=== PATIENT | female | born 1985 | race Caucasian/White ===

== ENCOUNTER 2024-09-29 09:33 | Inpatient (IN) | payer OTHER ==
[2024-09-29] MEDS ORDERED: ONDANSETRON 4 MG/2 ML VIAL ONE (10:18)
[2024-09-29] MEDS ORDERED: diazePAM CARPU-JECT 10 MG/2 ML DISP.SYRIN ONE (10:18)
[2024-09-29] MEDS ORDERED: THIAMINE HCL 200 MG/2 ML VIAL ONE (10:18)
[2024-09-29] MEDS ORDERED: ACETAMINOPHEN INJECTION 100 ML ONE (10:18)
[2024-09-29] MEDS ORDERED: PANTOPRAZOLE SODIUM 40 MG VIAL ONE (10:19)
[2024-09-29 10:21] LABS: HEMATOCRIT 46.8 % (32.4-45.2); HEMOGLOBIN 15.5 GM/dL (10.7-15.3); MCHC 33.1 g/dl (32.0-36.0); MEAN CELL VOLUME 117.8 fl (80-96); MEAN PLT VOLUME 8.3 fl (7.5-11.1); PLATELET COUNT 278 10^3/uL (134-434); RBC 3.97 M/mm3 (3.60-5.2); WHITE BLOOD COUNT 19.8 K/mm3 (4.0-10.0)
[2024-09-29 10:24] LABS: INR 1.03 (0.83-1.09); PROTHROMBIN TIME (PATIENT) 11.8 SEC (9.7-13.0)
[2024-09-29] MEDS: diazePAM CARPU-JECT 10 MG/2 ML DISP.SYRIN IVPUSH ONE (10:25)
[2024-09-29 10:26] LABS: ACTIVATED PTT 31.1 SECONDS (25.2-36.5)
[2024-09-29] MEDS: ONDANSETRON 4 MG/2 ML VIAL IVPUSH ONE (10:30)
[2024-09-29 10:32] LABS: POTASSIUM 4.8 mmol/L (3.5-5.1)
[2024-09-29 10:34] LABS: ALBUMIN 4.6 g/dl (3.4-5.0); CALCIUM 9.7 mg/dL (8.5-10.1)
[2024-09-29 10:35] LABS: BLOOD UREA NITROGEN 9.5 mg/dL (7-18); MAGNESIUM 1.7 mg/dL (1.8-2.4)
[2024-09-29] MEDS: THIAMINE HCL 200 MG/2 ML VIAL IVPB ONE (10:35)
[2024-09-29 10:38] LABS: CREATININE 1.4 mg/dL (0.55-1.3); PHOSPHOROUS 1.7 mg/dL (2.5-4.9)
[2024-09-29 10:39] LABS: BILIRUBIN,TOTAL 1.6 mg/dL (0.2-1); TOT PROT 9.1 g/dl (6.4-8.2)
[2024-09-29] MEDS: PANTOPRAZOLE SODIUM 40 MG VIAL IVPUSH ONE (10:50)
[2024-09-29 10:57] LABS: VENOUS BASE EXCESS -16.8 mmol/L (-2-2); VENOUS O2 SATURATION 72.1 % (70-80); VENOUS PCO2 23.2 mmHg (38-52); VENOUS PH 7.206 (7.310-7.410)
[2024-09-29] MEDS ORDERED: LACTATED RINGERS SOLUTION 1,000 ML/1,000 ML INFUS.BAG IV SCH (11:00)
[2024-09-29] MEDS ORDERED: DEXTROSE 5%-NORMAL SALINE 1,000 ML IV SCH (11:15)
[2024-09-29] MEDS: LACTATED RINGERS SOLUTION 1000 ML INFUS.BAG IV ONE ×2 (11:20→15:48)
[2024-09-29] MEDS: ACETAMINOPHEN 1000 MG/100 ML BAG IVPB ONE (11:20)
[2024-09-29] MEDS: MAGNESIUM SULFATE IN WATER 2 GM/50 ML IVPB IVPB ONE (11:50)
[2024-09-29 12:00] LABS: BILIRUBIN,DIRECT 0.6 mg/dL (0.0-0.2)
[2024-09-29] MEDS: FOLIC ACID 5 MG/1 ML SQ ONE (12:00)
[2024-09-29] MEDS: LACTATED RINGERS SOLUTION 1,000 ML/1,000 ML INFUS.BAG IV SCH (12:00)
[2024-09-29 12:05] LABS: MACROCYTOSIS 2+
[2024-09-29] MEDS ORDERED: MAGNESIUM SULFATE IN WATER 2 GM/50 ML IVPB IVPB ONE (12:23)
[2024-09-29 12:26] LABS: HEMOGLOBIN 14.2 GM/dL (10.7-15.3); MCH 38.8 pg (25.7-33.7); MCHC 33.1 g/dl (32.0-36.0); MEAN CELL VOLUME 117.4 fl (80-96); MEAN PLT VOLUME 8.1 fl (7.5-11.1); PLATELET COUNT 202 10^3/uL (134-434); RBC 3.66 M/mm3 (3.60-5.2); RDW 17.3 % (11.6-15.6); WHITE BLOOD COUNT 13.2 K/mm3 (4.0-10.0)
[2024-09-29 12:52] LABS: LACTIC ACID 2.2 mmol/L (0.4-2.0)
[2024-09-29 13:14] LABS: ANISOCYTOSIS 0; MACROCYTOSIS 2+
[2024-09-29 14:10] VITALS: BMI 26.9
[2024-09-29] MEDS: THIAMINE HCL 200 MG/2 ML VIAL IVPB SCH (14:20)
[2024-09-29 14:43] LABS: LACTIC ACID 2.1 mmol/L (0.4-2.0)
[2024-09-29] MEDS: ONDANSETRON 4 MG/2 ML VIAL IVPUSH PRN (15:16)
[2024-09-29] MEDS: SODIUM PHOSPHATE - 15 MM in DEXTROSE 5%-WATER - 250 ML IVPB ONE (15:22)
[2024-09-29 15:27] LABS: CHLORIDE 107 mmol/L (98-107); SODIUM 137 mmol/L (136-145)
[2024-09-29 15:30] LABS: CALCIUM 8.8 mg/dL (8.5-10.1); CO2 15 mmol/L (21-32); GLUCOSE,RANDOM 162 mg/dL (74-106)
[2024-09-29 15:31] LABS: BLOOD UREA NITROGEN 9.8 mg/dL (7-18)
[2024-09-29 15:32] LABS: ALBUMIN 3.4 g/dl (3.4-5.0); ANION GAP 16 mmol/L (4-13); POTASSIUM 6.3 mmol/L (3.5-5.1)
[2024-09-29 15:33] LABS: SGOT/AST 61 U/L (15-37); SGPT/ALT 48 U/L (13-61)
[2024-09-29 15:34] LABS: BILIRUBIN,TOTAL 1.2 mg/dL (0.2-1)
[2024-09-29 15:35] LABS: TOT PROT 7.1 g/dl (6.4-8.2)
[2024-09-29 15:36] LABS: ALK PHOS 90 U/L (45-117)
[2024-09-29 15:43] LABS: EPI CELLS 30 /uL (0-25.1); HYALINE CASTS 3 /uL (0-3.1); URINE APPEARANCE CLEAR; URINE BACTERIA 424 /uL (0-1359); URINE BILIRUBIN NEGATIVE (NEGATIVE); URINE COLOR YELLOW; URINE GLUCOSE (UA) NEGATIVE (NEGATIVE); URINE KETONE 4+ (NEGATIVE); URINE LEUK ESTERASE NEGATIVE (NEGATIVE); URINE NITRITE NEGATIVE (NEGATIVE); URINE PROTEIN 2+ (NEGATIVE); URINE RBC 56 /uL (0-23.9); URINE WBC 38 /uL (0-25.8)
[2024-09-29] MEDS: MUPIROCIN 2% TOPICAL OINTMENT FOR DECOLONIZATION NS SCH (15:47)
[2024-09-29 15:48] LABS: URINE BARBITURATES NEGATIVE (NEGATIVE); URINE BENZODIAZEPINES NEGATIVE (NEGATIVE)
[2024-09-29 15:49] LABS: COCAINE, UR NEGATIVE (NEGATIVE); OPIATES, URI NEGATIVE (NEGATIVE); PHENCYCLIDINE,URINE NEGATIVE (NEGATIVE)
[2024-09-29 15:51] LABS: METHADONE, UR NEGATIVE (NEGATIVE); URINE AMPHETAMINES NEGATIVE (NEGATIVE)
[2024-09-29 16:54] LABS: POTASSIUM 4.5 mmol/L (3.5-5.1)
[2024-09-29 16:55] LABS: CALCIUM 8.9 mg/dL (8.5-10.1)
[2024-09-29] MEDS: CHLORHEXIDINE GLUCONATE 4% CLEANSER FOR DECOLONIZATION TP SCH (21:10)
[2024-09-29] MEDS: DEXTROSE 5%-0.45% SALINE 1,000 ML IV SCH (21:43)
[2024-09-29] MEDS: PROCHLORPERAZINE INJECTION 10 MG/2 ML VIAL IVPB PRN (21:48)
[2024-09-29] MEDS: INSULIN REGULAR HUMAN 100 UNITS/ML *VIAL* (FOR IVP) IVPUSH ONE (21:55)
[2024-09-29] MEDS: INSULIN REGULAR 100 UNITS in SODIUM CHLORIDE 99 ML IVPB SCH (22:25)
[2024-09-29] MEDS: FOLIC ACID 5 MG/1 ML IVPUSH SCH (23:21)
[2024-09-30] MEDS: INSULIN REGULAR 100 UNITS in SODIUM CHLORIDE 99 ML IVPB SCH (01:06)
[2024-09-30 07:51] LABS: BASO % 0.4 % (0-2.0); EOS % 0.2 % (0-4.5); HEMATOCRIT 38.5 % (32.4-45.2); LYMPH % 6.1 % (8-40); MCH 38.6 pg (25.7-33.7); MCHC 33.7 g/dl (32.0-36.0); MEAN CELL VOLUME 114.5 fl (80-96); MEAN PLT VOLUME 8.6 fl (7.5-11.1); MONO % 3.1 % (3.8-10.2); NEUT % 90.2 % (42.8-82.8); PLATELET COUNT 165 10^3/uL (134-434); RBC 3.36 M/mm3 (3.60-5.2); RDW 16.7 % (11.6-15.6); WHITE BLOOD COUNT 12.7 K/mm3 (4.0-10.0)
[2024-09-30 08:05] LABS: CHLORIDE 102 mmol/L (98-107); POTASSIUM 3.5 mmol/L (3.5-5.1); SODIUM 138 mmol/L (136-145)
[2024-09-30 08:11] LABS: ALBUMIN 3.6 g/dl (3.4-5.0); ANION GAP 10 mmol/L (4-13); BLOOD UREA NITROGEN 8.8 mg/dL (7-18); CALCIUM 9.2 mg/dL (8.5-10.1); CO2 26 mmol/L (21-32); GLUCOSE,RANDOM 69 mg/dL (74-106)
[2024-09-30 08:14] LABS: SGOT/AST 45 U/L (15-37)
[2024-09-30 08:16] LABS: BILIRUBIN,TOTAL 1.5 mg/dL (0.2-1); SGPT/ALT 40 U/L (13-61); TOT PROT 6.8 g/dl (6.4-8.2)
[2024-09-30 08:17] LABS: ALK PHOS 89 U/L (45-117)
[2024-09-30 08:20] LABS: PHOSPHOROUS 0.7 mg/dL (2.5-4.9)
[2024-09-30] MEDS: NAPH,MB-DB/K PH,MBDB POWDER PACKET PO ONE ×2 (08:59→10:59)
[2024-09-30] MEDS: PANTOPRAZOLE SODIUM 40 MG VIAL IVPUSH SCH (08:59)
[2024-09-30 09:00] LABS: INR 0.97 (0.83-1.09)
[2024-09-30] MEDS: THIAMINE HCL 200 MG/2 ML VIAL IVPB SCH ×3 (09:00→21:18)
[2024-09-30] MEDS: POTASSIUM PHOSPHATE 45 MM in SODIUM CHLORIDE 500 ML IVPB ONE (10:59)
[2024-09-30] MEDS: INSULIN ASPART SLIDING SCALE (NOVOLOG) 1 VIAL SQ SCH (11:17)
[2024-09-30] MEDS: LACTATED RINGERS SOLUTION 1,000 ML/1,000 ML INFUS.BAG IV SCH (12:00)
[2024-09-30 15:23] LABS: POTASSIUM 3.2 mmol/L (3.5-5.1)
[2024-09-30 15:25] LABS: BLOOD UREA NITROGEN 5.9 mg/dL (7-18); CALCIUM 8.5 mg/dL (8.5-10.1)
[2024-09-30 15:29] LABS: CREATININE 0.7 mg/dL (0.55-1.3); PHOSPHOROUS 2.6 mg/dL (2.5-4.9)
[2024-09-30 17:06] VITALS: RESP 20
[2024-09-30] MEDS: POTASSIUM CHLORIDE ORAL LIQUID 20 MEQ/15 ML PO ONE (17:17)
[2024-09-30] MEDS ORDERED: ONDANSETRON 4 MG/2 ML VIAL IVPUSH PRN (18:14)
[2024-09-30] MEDS ORDERED: PROCHLORPERAZINE INJECTION 10 MG/2 ML VIAL IVPB PRN (18:14)
[2024-09-30] MEDS ORDERED: CHLORHEXIDINE GLUCONATE 4% CLEANSER FOR DECOLONIZATION TP SCH (22:00)
[2024-09-30] MEDS ORDERED: MUPIROCIN 2% TOPICAL OINTMENT FOR DECOLONIZATION NS SCH (22:00)
[2024-10-01] MEDS: PANTOPRAZOLE 40 MG TABLET PO SCH (09:22)
[2024-10-01 09:41] VITALS: BP 136/95; PULSE 80; TEMP 98.2
[2024-10-01] MEDS ORDERED: FOLIC ACID 5 MG/1 ML IVPUSH SCH (10:00)
== END 2024-10-01 10:18 | disposition home or self-care (01) | DRG 282 ==
LOC: JER 09:33 → JERBED 12:16 → JICU 13:44 → J8W 09-30 18:04
PROVIDERS: ADMIT Family Medicine; ATTEND Family Medicine
DX: K85.20 Alcohol induced acute pancreatitis without necrosis or infection (principal); K92.0 Hematemesis; E87.20 Acidosis, unspecified; F10.239 Alcohol dependence with withdrawal, unspecified; F12.90 Cannabis use, unspecified, uncomplicated; K70.10 Alcoholic hepatitis without ascites; K70.9 Alcoholic liver disease, unspecified; R74.01 Elevation of levels of liver transaminase levels
CPT/HCPCS: 36415; 71045-TC-FY; 74176-TC; 76705-TC; 80048; 80053; 80307; 81003; 82010; 82248; 82272; 82550; 82607; 82803; 82962; 83036; 83605; 83690; 83735; 84100; 84425; 84443; 84478; 84484; 84703; 85025; 85610; 85730; 86705; 86708; 86850; 86900; 86901; 87086; 87340; 87481; 87517; 87522; 87635; 93005; 93010; 99291; J0131